=== PATIENT | female | born 1965 | race Caucasian/White ===

== ENCOUNTER → 2016-06-02 | Day surgery (SDC) | payer MEDICAID, OTHER, SELFPAY ==
[~2016-06-02] MED LIST: Lactated Ringers 1,000 ML IV SCH; Lidocaine 4% Top Soln 5 ML LTA Syringe ONE; Lidocaine 4% Top Soln 5 ML LTA Syringe TOP ONE; Propofol 200 MG/20 ML SDV IV ONE
[2016-06-02 10:19] VITALS: BP 132/88
--- NOTE | 2016-06-02 14:33 | OR ---
DATE OF OPERATION: 06/02/2016 PREOPERATIVE DIAGNOSIS: RIGHT UPPER QUADRANT PAIN. POSTOPERATIVE DIAGNOSIS: RIGHT UPPER QUADRANT PAIN. SURGEON: Alexsander Dale MD PROCEDURE: EGD WITH BIOPSIES X3, MADELINE, POLYPECTOMY X2. ANESTHESIA: PUBLIC HEALTH SANITARIAN due to chronic GERD. COMPLICATIONS: None. SPECIMEN: 1. Duodenal biopsy x1. 2. Fundal polyps x2. 3. Antral MADELINE. 4. Antral biopsy x2. FINDINGS: 1. Full-length EGD. 2. Antral gastritis, mild with multiple focal erosions. 3. Hiatal hernia without esophagitis or Durant's changes. 4. Fundal polyposis. RECOMMENDATIONS: Ongoing medical follow up with primary provider. INDICATIONS: The patient has a history of chronic abdominal pain. She has been having right upper quadrant discomfort, and Dr. Young sent her for upper and lower endoscopy. DESCRIPTION OF PROCEDURE: The patient was prepped and draped, placed in the left lateral decubitus position. A lubricated Olympus gastroscope was inserted over a bit advanced cricopharyngeus area and easily intubated into the esophagus. The esophageal lining appeared benign in its entire course. The Z- line was crisp and sharp at around 37.5 cm. There was a small hiatal hernia present without any spontaneous GERD visualized. There was no distal esophagitis, stricturing, ulceration, or Durant's changes seen. The scope was advanced into the stomach through the pylorus into the third portion of the duodenum. There is a little bit of blunting of the duodenal villi, and a biopsy of the duodenal bulb was taken to evaluate for celiac disease. The scope was brought back into the stomach and retroflexed. The upper fundus and cardia were benign. The patient does have fundal polyposis, which has been documented in the past. These polyps have been benign adenomatous polyps. We did elect to take two of them off with cold forceps in their entirety. A thorough evaluation of the rest of the gastric lining including the antrum showed some antral gastritis, very mild, but there were 3 small erosions. Biopsies x2 were taken along with the MADELINE test. Air was then suctioned. The scope removed without complications. LUZ MARIA/JADIEL /[id number]
== END ==
LOC: CC.SDS 08:38
PROVIDERS: ATTEND Family Medicine
DX: K29.50 Unspecified chronic gastritis without bleeding (principal); K31.9 Disease of stomach and duodenum, unspecified; K44.9 Diaphragmatic hernia without obstruction or gangrene; K21.9 Gastro-esophageal reflux disease without esophagitis; I10 Essential (primary) hypertension; E03.9 Hypothyroidism, unspecified; E66.3 Overweight; Z88.8 Allergy status to other drugs, medicaments and biological substances; Z79.899 Other long term (current) drug therapy; Z90.49 Acquired absence of other specified parts of digestive tract; Z90.710 Acquired absence of both cervix and uterus; Z98.890 Other specified postprocedural states; Z72.0 Tobacco use
CPT/HCPCS: 43239; 87081; A9270; J2704; J7120

== ENCOUNTER → 2018-09-19 | Day surgery (SDC) | payer MEDICAID ==
[~2018-09-19] MED LIST changes: +Acetaminophen/oxyCODONE 325-5 MG Tab PO ONE; +Bupivacaine 0.25%/EPINEPHrine 1:200,000 10 ML SDV ONE; +Glycopyrrolate 0.2 MG/ML SDV IVPUSH ONE; +HYDROmorphone 1 MG/ML Syringe IVPUSH ONE; -Lidocaine 4% Top Soln 5 ML LTA Syringe ONE; -Lidocaine 4% Top Soln 5 ML LTA Syringe TOP ONE; +Midazolam 1 MG/ML 2 ML SDV IV ONE; +Neostigmine Methylsulfate 10 MG/10 ML MDV IV ONE; +Ondansetron 4 MG/2 ML SDV IV ONE; +Rocuronium 50 MG/5 ML Vial IV ONE; +Succinylcholine 200 MG/10 ML MDV IV ONE; +fentaNYL 100 MCG/2 ML SDV IV ONE
--- NOTE | 2018-09-19 11:49 | OR ---
DATE OF OPERATION: 09/19/2018 PREOPERATIVE DIAGNOSIS: VENTRAL INCISIONAL HERNIA. POSTOPERATIVE DIAGNOSIS: VENTRAL INCISIONAL HERNIA. SURGEON: Tristin Melara MD PROCEDURE: DIAGNOSTIC LAPAROSCOPY WITH OPEN REPAIR OF RECURRENT INCISIONAL VENTRAL HERNIA. ANESTHESIA: General. ESTIMATED BLOOD LOSS: Minimum. SPECIMEN: Hernia sac. INDICATIONS: This 53-year-old female has had a prior supraumbilical hernia repair. She now has a recurrent by CAT scan. This is moderate size. Symptom- chung, she feels like this is way over in the left upper quadrant, however, by CAT scans in the midline. I used a diagnostic laparoscopy to pinpoint where to make the incision over this. FINDINGS: Recurrent incisional hernia containing omentum. DESCRIPTION OF PROCEDURE: After adequate preparation, the right upper quadrant stab incision was made and a 5 mm trocar and Laparoscoped were inserted. She did indeed have omentum stuck in a recurrent supraumbilical site. I could see the prior Ethibond sutures within the fascial edges. I made an incision over the previous scar and extended it upward a centimeter or two. This exposed the hernia sac, which was then dissected free from the subcutaneous tissue at the fascial margins. This was incised and the omentum was able to be reduced back into the abdomen. The defect measured about 2.5 cm in diameter. This was closed in a transverse fashion using 0 Ethibond permanent sutures. The fascia was then infiltrated with lidocaine. The subcutaneous tissue closed with a 3-0 Vicryl and 4-0 Vicryl for the skin. CHAD/JADIEL /[id number]
[2018-09-19 15:10] VITALS: BP 105/70; PULSE 71
== END ==
LOC: CC.SDS 06:59
PROVIDERS: ATTEND Surgery
DX: K43.2 Incisional hernia without obstruction or gangrene (principal); I10 Essential (primary) hypertension; E03.9 Hypothyroidism, unspecified; K74.3 Primary biliary cirrhosis; J45.909 Unspecified asthma, uncomplicated; G43.909 Migraine, unspecified, not intractable, without status migrainosus; Z88.1 Allergy status to other antibiotic agents; Z91.09 Other allergy status, other than to drugs and biological substances
CPT/HCPCS: 49565; A9270; J0330; J1170; J2250; J2405; J2704; J2710; J3010; J3490; J7120

== ENCOUNTER → 2020-04-23 | Day surgery (SDC) | payer MEDICAID ==
[~2020-04-23] MED LIST changes: -Acetaminophen/oxyCODONE 325-5 MG Tab PO ONE; -Bupivacaine 0.25%/EPINEPHrine 1:200,000 10 ML SDV ONE; -Glycopyrrolate 0.2 MG/ML SDV IVPUSH ONE; -HYDROmorphone 1 MG/ML Syringe IVPUSH ONE; +Ketamine 200 MG/20 ML MDV ONE; +Lidocaine 2% 5 ML SDV ONE; -Midazolam 1 MG/ML 2 ML SDV IV ONE; -Neostigmine Methylsulfate 10 MG/10 ML MDV IV ONE; -Ondansetron 4 MG/2 ML SDV IV ONE; +Ondansetron 4 MG/2 ML SDV ONE; -Propofol 200 MG/20 ML SDV IV ONE; +Propofol 200 MG/20 ML SDV ONE; -Rocuronium 50 MG/5 ML Vial IV ONE; -Succinylcholine 200 MG/10 ML MDV IV ONE; -fentaNYL 100 MCG/2 ML SDV IV ONE; +fentaNYL 100 MCG/2 ML SDV ONE
--- NOTE | 2020-04-23 10:51 | OR ---
DATE OF OPERATION: 04/23/2020 PREOPERATIVE DIAGNOSIS: RIGHT UPPER QUADRANT PAIN. POSTOPERATIVE DIAGNOSIS: RIGHT UPPER QUADRANT PAIN. SURGEON: Alexsander Dale MD PROCEDURE: DIAGNOSTIC ESOPHAGOGASTRODUODENOSCOPY WITH BIOPSIES X2, MADELINE WITH FORCEPS POLYP REMOVAL X1. ANESTHESIA: MAC. COMPLICATIONS: None. SPECIMEN: 1. Antral biopsy x2. 2. Antral MADELINE. 3. Adenomatous polyp of fundus. FINDINGS: 1. Full-length diagnostic EGD. 2. Mild and chronic-appearing antral gastritis without ulceration or erosion. 3. Fundal polyposis. RECOMMENDATIONS: Medical followup pending path reports. INDICATIONS: Mrs. Antoine presented with complaints of right upper quadrant pain. She has known primary biliary cirrhosis. We elected to proceed with diagnostic EGD to rule out peptic ulcer disease. DESCRIPTION OF PROCEDURE: The patient was prepped and draped, placed in the left lateral decubitus position. A lubricated Olympus gastroscope was inserted, advanced to the cricopharyngeus area, and easily intubated into the esophagus. The esophageal lining was benign in its entire course. The Z-line was crisp around 37 cm. No distal esophagitis, stricturing, ulceration, or Durant's changes were seen. The scope was advanced into the stomach, through the pylorus, and into the second portion of the duodenum. This and the duodenal bulb were completely benign. The scope was brought back into the stomach and retroflexed. The upper fundus and cardia were unremarkable. Upon straightening, the patient does have a few smaller adenomatous polyps in the mid- to-distal fundus. We did remove one with the forceps for confirmation. The rest of the fundus was unremarkable. The patient does have chronic-appearing gastritis of the antrum, very mild. No ulcerations or erosions were seen. We took two pharmacy sales representative biopsies along with a CLOtest. Air was then suctioned and the scope was removed without complication. LUZ MARIA/JADIEL /[id number]
[2020-04-23 11:15] VITALS: BP 150/71; PULSE 71
== END ==
LOC: CC.SDS 08:36
PROVIDERS: ATTEND Family Medicine
DX: K29.50 Unspecified chronic gastritis without bleeding (principal); K31.7 Polyp of stomach and duodenum; K74.3 Primary biliary cirrhosis; K21.9 Gastro-esophageal reflux disease without esophagitis; I10 Essential (primary) hypertension; E03.9 Hypothyroidism, unspecified; E66.3 Overweight; E55.9 Vitamin D deficiency, unspecified; M79.7 Fibromyalgia; Z88.1 Allergy status to other antibiotic agents; Z91.048 Other nonmedicinal substance allergy status; Z79.899 Other long term (current) drug therapy; Z90.49 Acquired absence of other specified parts of digestive tract; Z98.890 Other specified postprocedural states; Z68.32 Body mass index [BMI] 32.0-32.9, adult
CPT/HCPCS: 00731; 87081; J2405; J2704; J3010; J7120

== ENCOUNTER → 2021-03-03 | Day surgery (SDC) | payer MEDICAID ==
[~2021-03-03] MED LIST changes: -Ketamine 200 MG/20 ML MDV ONE; -Lidocaine 2% 5 ML SDV ONE; +Ondansetron 4 MG/2 ML SDV IVPUSH PRN; -Propofol 200 MG/20 ML SDV ONE; -fentaNYL 100 MCG/2 ML SDV ONE
--- NOTE | 2021-03-03 13:13 | OR ---
DATE OF OPERATION: 03/03/2021 PREOPERATIVE DIAGNOSIS: CHRONIC RIGHT UPPER QUADRANT ABDOMINAL PAIN AND QUESTIONABLE UMBILICAL HERNIA. POSTOPERATIVE DIAGNOSIS: CHRONIC RIGHT UPPER QUADRANT ABDOMINAL PAIN AND QUESTIONABLE UMBILICAL HERNIA. SURGEON: Tristin Melara MD PROCEDURE: DIAGNOSTIC LAPAROSCOPY WITH LYSIS OF ADHESIONS. ANESTHESIA: General. ESTIMATED BLOOD LOSS: Minimum. SPECIMEN: None. FINDINGS: Multiple adhesions to supraumbilical hernia repair with mesh. No recurrent hernia is noted. The right upper quadrant appears to be normal. DESCRIPTION OF PROCEDURE: After adequate preparation, a 5 mm trocar was placed in the left upper quadrant. This was then exchanged for a 5 mm trocar and laparoscope. Two other 5 mm trocars were placed on the right side. Visual examination showed omental adhesions that were densely adherent to the prior preperitoneal mesh that was placed for prior hernia repair. The liver appeared to be normal. There were no other adhesions. The lateral wall was normal. I did not find any adhesions between the liver and the diaphragm. By cautery and as and sharp dissection, the adhesions were taken down off the mesh and again, the area was checked for hernia and there was no evidence of recurrent hernia. The patient was placed in reverse Trendelenburg and examination of the pelvis and groins are normal. No evidence of adhesions or hernias in the groin. Patient has had a prior appendectomy. No other adhesions or abnormalities were noted. The 5 mm trocars were removed and the skin closed with Vicryl. BPB/MODL /[id number]
[2021-03-03 14:04] VITALS: BP 130/78; PULSE 80
== END ==
LOC: CC.SDS 08:28
PROVIDERS: ATTEND Surgery
DX: K66.0 Peritoneal adhesions (postprocedural) (postinfection) (principal); G89.29 Other chronic pain; I10 Essential (primary) hypertension; K21.9 Gastro-esophageal reflux disease without esophagitis; E03.9 Hypothyroidism, unspecified; E66.9 Obesity, unspecified; Z88.8 Allergy status to other drugs, medicaments and biological substances; Z79.890 Hormone replacement therapy
CPT/HCPCS: J2405; J7120

== ENCOUNTER → 2022-06-30 | Day surgery (SDC) | payer MEDICAID ==
[~2022-06-30] MED LIST changes: +Ketamine 200 MG/20 ML MDV ONE; -Ondansetron 4 MG/2 ML SDV IVPUSH PRN; -Ondansetron 4 MG/2 ML SDV ONE; +Propofol 200 MG/20 ML SDV ONE; +fentaNYL 50 MCG/ML SDV ONE
[2022-06-30 10:48] VITALS: BP 138/74; PULSE 78
== END ==
LOC: CC.SDS 08:54
PROVIDERS: ATTEND Family Medicine
DX: Z12.11 Encounter for screening for malignant neoplasm of colon (principal); K57.30 Diverticulosis of large intestine without perforation or abscess without bleeding; D12.0 Benign neoplasm of cecum; K21.9 Gastro-esophageal reflux disease without esophagitis; K74.3 Primary biliary cirrhosis; M79.7 Fibromyalgia; E03.9 Hypothyroidism, unspecified; N39.0 Urinary tract infection, site not specified; L30.9 Dermatitis, unspecified; F41.9 Anxiety disorder, unspecified; J45.909 Unspecified asthma, uncomplicated; E66.3 Overweight; E55.9 Vitamin D deficiency, unspecified; Z88.2 Allergy status to sulfonamides; Z88.1 Allergy status to other antibiotic agents; Z88.8 Allergy status to other drugs, medicaments and biological substances; Z98.890 Other specified postprocedural states; Z79.890 Hormone replacement therapy; Z79.899 Other long term (current) drug therapy; Z90.710 Acquired absence of both cervix and uterus; Z90.89 Acquired absence of other organs; Z68.29 Body mass index [BMI] 29.0-29.9, adult
CPT/HCPCS: 00811; J2704; J3010; J3490; J7120

== ENCOUNTER 2023-04-18 11:38 | Day surgery (SDC) | payer MEDICAID ==
[2023-04-18] MEDS ORDERED: Midazolam 1 MG/ML 2 ML SDV ONE (11:50)
[2023-04-18] MEDS ORDERED: Ondansetron 4 MG/2 ML SDV ONE (11:50)
[2023-04-18] MEDS ORDERED: Propofol 200 MG/20 ML SDV ONE (11:50)
[2023-04-18] MEDS ORDERED: fentaNYL 50 MCG/ML SDV ONE (11:50)
[2023-04-18] MEDS: Lactated Ringers 1,000 ML IV SCH (11:51)
[2023-04-18] MEDS: Lidocaine 1% 5 ML VIAL INJECT ONE (12:29)
[2023-04-18 15:05] VITALS: BP 132/77; PULSE 65
== END 2023-04-18 14:10 | disposition home or self-care (01) ==
LOC: CC.SDS 11:38
PROVIDERS: ATTEND Surgery
DX: G56.03 Carpal tunnel syndrome, bilateral upper limbs (principal); F41.9 Anxiety disorder, unspecified; J45.909 Unspecified asthma, uncomplicated; K21.9 Gastro-esophageal reflux disease without esophagitis; E03.9 Hypothyroidism, unspecified; Z79.899 Other long term (current) drug therapy; Z79.890 Hormone replacement therapy; Z98.890 Other specified postprocedural states; Z72.0 Tobacco use; Z88.2 Allergy status to sulfonamides; Z88.8 Allergy status to other drugs, medicaments and biological substances
CPT/HCPCS: 64721; J2250; J2405; J2704; J3010; J7120; J3490